=== PATIENT | male | born 1990 | race Caucasian/White ===

== ENCOUNTER 2020-06-24 14:09 | Outpatient (REF) | payer BC, SELFPAY | END 2020-06-24 14:10 | disposition home or self-care (01) | LOC: HO.HMGCLDS 14:09 | PROVIDERS: PCP Nurse Practitioner Family; Visit Provider Internal Medicine | DX: Z20.828 Contact with and (suspected) exposure to other viral communicable diseases (principal) | CPT/HCPCS: 87635 ==

== ENCOUNTER 2024-08-12 20:51 | Inpatient (IN) | payer MEDICAID, SELFPAY ==
--- NOTE | ~2024-08-12 | US_ITS ---
EXAMINATION: US TRIPLEX UPPER EXTREMITY, RIGHT CLINICAL INFORMATION: Right arm swelling following IV placement. COMPARISON: None available. TECHNIQUE: Color-flow triplex imaging with spectral analysis and compression Doppler was performed on the right upper extremity. FINDINGS: Heterogeneous echogenicity and noncompressibility of the cephalic vein in the antecubital fossa and distally into the right forearm, consistent with a superficial thrombus. The right internal jugular, subclavian, and axillary veins are patent and free of thrombus. The imaged segment of the right brachiocephalic vein is patent. Spectral doppler waveforms are normal. The brachial and basilic veins are patent and compressible. US/US venous duplex UE RT IMPRESSION: 1. Superficial thrombus within the right cephalic vein in the antecubital fossa and distally into the right forearm. 2. No evidence of deep venous thrombosis involving the right upper extremity. Electronically signed by: Ananth Wagner MD 08/15/2024 11:56 AM [facility]
[2024-08-12 20:52] VITALS: BP 147/81; PULSE 115; RESP 20; TEMP 37.4; O2SAT 98; BMI 25.5
[2024-08-12 21:24] LABS: MANUAL DIFF FLAG NO
[2024-08-12 21:28] LABS: Basophils Absolute Auto 0.1 X10*3/uL (0.0-0.2); Basophils Percent Auto 0.6 % (0-2); Eosinophils Percent Auto 0.3 % (0-4); Hematocrit 43.2 % (42.0-52.0); Hemoglobin 15.5 g/dl (14.0-18.0); Imm Gran Abs Auto 0.02 X10*3/uL (0.00-0.03); Imm Gran Pct Auto 0.2 % (0.0-0.4); Lymphocytes Absolute Auto 2.2 X10*3/uL (1.2-4.9); Lymphocytes Percent Auto 18.1 % (20-40); Mean Corpuscular HGB Conc 35.9 g/dl (31.0-36.0); Mean Corpuscular Hemoglobin 33.5 pg (27.0-33.0); Mean Corpuscular Volume 93.5 fL (80.0-98.0); Mean Platelet Volume 8.3 fL (9.4-12.4); Monocytes Absolute Auto 0.7 X10*3/uL (0.1-1.2); Monocytes Percent Auto 5.6 % (2-11); Neutrophils Absolute Auto 9.2 x10*3/uL (2.0-8.3); Neutrophils Percent Auto 75.2 % (45-73); Platelet Count 300 X10*3/uL (160-400); Red Blood Count 4.62 X10*6/uL (4.60-5.80); Red Cell Distribution Width 12.3 % (11.0-16.0); White Blood Count 12.2 X10*3/uL (4.8-10.8)
[2024-08-12 21:42] LABS: Albumin Level 4.5 g/dL (3.5-5.0); Alkaline Phosphatase 51 U/L (39-117); Anion Gap 13 (12-20); Aspartate Amino Transferase 29 U/L (5-37); Bilirubin Total 0.4 mg/dL (0.0-1.0); Blood Urea Nitrogen 7 mg/dL (9-16); C Reactive Protein 0.44 mg/dL (< or = 0.50); Calcium 9.3 mg/dL (8.4-10.2); Carbon Dioxide 24 mmol/L (22-29); Chloride 103 mmol/L (96-108); Estimated Glomerular Filt Rate > 60; Glucose Random 95 mg/dL (60-115); Lactic Acid 2.3 mmol/L (0.5-2.0); Lipase 39 U/L (8-78); Potassium 3.2 mmol/L (3.3-5.1); Sodium 137 mmol/L (135-145); Total Protein 7.4 g/dL (6.5-8.0)
[2024-08-12 21:54] LABS: Alanine Aminotransferase 30 U/L (0-40)
[2024-08-12] MEDS: 0.9 % Sodium Chloride 1,000 ML 999 ML IV (22:08)
[2024-08-12] MEDS: Acetaminophen 325 MG TABLET 650 MG PO (22:09)
[2024-08-12] MEDS: cefEPime HCl/D5W 2 GM/50 ML PIGGYBACK IV (22:09)
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
[2024-08-12] MEDS: vancomycin/NS 2,000 MG/500 ML PLAST..BAG 250 MG IV (22:28)
[2024-08-12] MEDS: Potassium Chloride ER 20 MEQ TAB.ER.PRT 40 MEQ PO (22:28)
[2024-08-12] MEDS: Diphth,Pertus(ACell),Tet Adult 0.5 ML SYRINGE IM (22:29)
[2024-08-12 22:30] LABS: Appearance Urine Clear; Color Urine Yellow; Glucose Urine UA Negative (Negative); Leukocyte Esterase Urine Negative (Negative); Nitrite Urine Negative (Negative); PH 5.5 (5.0-9.0); Urine Blood Negative (Negative); Urine Ketones Negative (Negative); Urine Protein Negative (Neg-Trace)
[2024-08-12 22:36] LABS: Erythrocyte Sedimentation Rate 2 MM/HR (0-15)
[2024-08-12 22:46] VITALS: BP 146/96; PULSE 79; RESP 18; TEMP 36.8; O2SAT 97
[2024-08-12 23:21] LABS: Reflex Lactate? Lactic Acid Added
[2024-08-12 23:22] VITALS: BP 126/68; PULSE 74; RESP 12; O2SAT 98
[2024-08-12 23:35] VITALS: BP 127/70; PULSE 80; RESP 12; TEMP 36.9; O2SAT 98
[2024-08-12 23:56] LABS: ~Lactic Acid-LAB USE ONLY 1.8 mmol/L (0.5-2.0)
--- NOTE | 2024-08-12 23:59 | MHC.EDTECH ---
This tech took over care of patient at 2300,rounded and introduced self to pt,RN at bedside and took vitals,pt appears comfortable,call salazar in reach
[2024-08-13 00:58] VITALS: BP 114/80; PULSE 72; RESP 16; TEMP 36.7; O2SAT 97
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
[2024-08-13 01:52] LABS: Magnesium 2.3 mg/dL (1.6-2.6)
[2024-08-13 04:26] VITALS: BP 124/92; PULSE 71; RESP 16; TEMP 36.6; O2SAT 98
[2024-08-13 04:38] LABS: Basophils Absolute Auto 0.1 X10*3/uL (0.0-0.2); Basophils Percent Auto 0.8 % (0-2); Eosinophils Absolute Auto 0.1 X10*3/uL (0.0-0.4); Eosinophils Percent Auto 1.5 % (0-4); Hematocrit 40.7 % (42.0-52.0); Imm Gran Abs Auto 0.02 X10*3/uL (0.00-0.03); Imm Gran Pct Auto 0.2 % (0.0-0.4); Lymphocytes Absolute Auto 2.1 X10*3/uL (1.2-4.9); MANUAL DIFF FLAG NO; Mean Corpuscular HGB Conc 34.4 g/dl (31.0-36.0); Mean Corpuscular Hemoglobin 33.3 pg (27.0-33.0); Mean Corpuscular Volume 96.9 fL (80.0-98.0); Mean Platelet Volume 8.7 fL (9.4-12.4); Monocytes Absolute Auto 0.7 X10*3/uL (0.1-1.2); Monocytes Percent Auto 7.6 % (2-11); Neutrophils Percent Auto 66.9 % (45-73); Platelet Count 262 X10*3/uL (160-400); Red Cell Distribution Width 12.3 % (11.0-16.0); White Blood Count 8.9 X10*3/uL (4.8-10.8)
[2024-08-13 04:53] LABS: Anion Gap 15 (12-20); Blood Urea Nitrogen 8 mg/dL (9-16); Calcium 8.7 mg/dL (8.4-10.2); Carbon Dioxide 22 mmol/L (22-29); Chloride 105 mmol/L (96-108); Creatinine Clr Calc Pharmacy 152.5; Estimated Glomerular Filt Rate > 60; Glucose Random 85 mg/dL (60-115); Potassium 3.8 mmol/L (3.3-5.1); Sodium 138 mmol/L (135-145)
--- NOTE | 2024-08-13 06:06 | PHA.PROG ---
Admission Date/Time: August 13, 2024 00:48 Indication: Skin Weight in k.2 kg Adjusted body weight in Kg: Byars body weight in Kg: Obesity Dosing Indication % IBW: Serum Creatinine - Last 168 Hours 08/12/24 08/13/24 21:16 04:24 Creatinine 0.87 0.77 Estimated CrCl and GFR - Last 168 Hours 08/12/24 08/13/24 21:16 04:24 Estim Creat Clear Calc 135.0 152.5 Estimated GFR > 60 > 60 Vancomycin Loading Dose: 2000mg Current Vancomycin Dosing Regimen: 1250mg Q12H Vancomycin Monitoring using AUC goal of 400 - 600 range with trough as surrogate marker: 458 mg/L Date and Time for next Vancomycin Level to be drawn: 08/14 @0900 Pharmacist Comments on Vancomycin Plan: Projected trough of 13.4 mg/L, will get level before 4th dose tomorrow. Vancomycin dosing will take advantage of [employer] as a clinical decision support tool that uses Bayesian modeling to calculate individual patient's pharmacokinetic parameters and forecast the patient's drug concentration time course with the target goal AUC 24 range of 400 - 600 mg/L/hr.
--- NOTE | 2024-08-13 07:31 | PC.NURSE ---
Care of Pt assumed at change of shift. Pt is currently resting comfortably with eyes closed. Pt has inpatient room assignment at this time--will prepare for transport.
[2024-08-13] MEDS: 0.9 % Sodium Chloride Flush 3 ML SYRINGE IVFLUSH ×3 (07:34→22:20)
[2024-08-13 07:37] VITALS: BP 134/93; PULSE 78; RESP 16; TEMP 36.8; O2SAT 95
--- NOTE | 2024-08-13 08:09 | P.PNIM_ITS ---
Subjective Subjective Date of Service: 08/13/24 Interval History: some improvement in erythema Physical Exam 2 Vital Signs: Vital Signs: Last Vital Signs Temp 98.3 F 08/13/24 07:37 Pulse 78 08/13/24 07:37 Resp 16 08/13/24 07:37 BP 134/93 H 08/13/24 07:37 Pulse Ox 95 08/13/24 07:37 O2 Del Method Room Air 08/13/24 07:37 BMI result Body Mass Index 25.5 Objective Data Active Medications Acetaminophen (Acetaminophen 325 Mg Tablet) 650 mg PO Q6H PRN PRN Reason: Pain, Mild (Pain Scale 1-3), fever or headache Calcium Carbonate (Calcium Carbonate 750 Mg Tab.Chew) 750 mg PO Q4H PRN PRN Reason: Heartburn Cefepime HCl (Maxipime) 2 gm in 50 mls @ 100 mls/hr IV Q12H [facility] Vancomycin HCl 1,250 mg/ (Sodium Chloride) 250 mls @ 166.667 mls/hr IV Q12H [facility] Magnesium Hydroxide (Milk Of Magnesia 30 Ml Oral.Susp) 30 ml PO DAILY PRN PRN Reason: Constipation Melatonin (Melatonin 3 Mg Tablet) 6 mg PO BEDTIME PRN PRN Reason: Insomnia Morphine Sulfate (Morphine Sulfate 2 Mg/Ml Cartridge) 2 mg IVPUSH Q4H PRN; Protocol PRN Reason: Pain, Severe (Pain Scale 7-10) Ondansetron HCl (Ondansetron Hcl 4 Mg/2 Ml Vial) 4 mg IVPUSH Q8H PRN PRN Reason: Nausea and Vomiting Oxycodone HCl (Oxycodone Hcl Immed Release 5 Mg Tablet) 5 mg PO Q6H PRN PRN Reason: Pain, Moderate(Pain Scale 4-6) Pharmacy Consult (Consult Rx Vancomycin Dosing) 1 each MISCELLANE DAILY PRN PRN Reason: Consult order Rivaroxaban (Rivaroxaban 20 Mg Tablet) 20 mg PO DAILY@1700 [facility] Sodium Chloride (0.9 % Sodium Chloride Flush 3 Ml Syringe) 3 ml IVFLUSH QSHIFT [facility] Last Admin: 08/13/24 07:34 Dose: 3 ml Documented By: MARTHA Labs 08/13/24 04:24 08/13/24 04:24 Labs: Laboratory Results - last 24 hr 08/12/24 08/12/24 08/12/24 21:16 22:14 23:30 MCV 93.5 MCH 33.5 H MCHC 35.9 RDW 12.3 Plt Count 300 MPV 8.3 L Immature Gran % (Auto) 0.2 Neut % (Auto) 75.2 H Lymph % (Auto) 18.1 L [place] % (Auto) 5.6 Eos % (Auto) 0.3 Baso % (Auto) 0.6 Lymph # (Auto) 2.2 [place] # (Auto) 0.7 Eos # (Auto) 0.0 Baso # (Auto) 0.1 Abs Immat Gran (auto) 0.02 Absolute Neuts (auto) 9.2 H Absolute Nucleated RBC 0.000 Nucleated RBC % (auto) 0.0 ESR 2 Anion Gap 13 Estim Creat Clear Calc 135.0 Estimated GFR > 60 Random Glucose 95 Lactic Acid 2.3 H* Lactic Acid F/U @ 2Hr 1.8 Calcium 9.3 Magnesium 2.3 Total Bilirubin 0.4 AST 29 ALT 30 Alkaline Phosphatase 51 C-Reactive Protein 0.44 Total Protein 7.4 Albumin 4.5 Lipase 39 Urine Color Yellow Urine Appearance Clear Urine pH 5.5 Ur Specific [place] 1.010 Urine Protein Negative Urine Glucose (UA) Negative Urine Ketones Negative Urine Blood Negative Urine Nitrite Negative Ur Leukocyte Esterase Negative 08/13/24 04:24 MCV 96.9 MCH 33.3 H MCHC 34.4 RDW 12.3 Plt Count 262 MPV 8.7 L Immature Gran % (Auto) 0.2 Neut % (Auto) 66.9 Lymph % (Auto) 23.0 [place] % (Auto) 7.6 Eos % (Auto) 1.5 Baso % (Auto) 0.8 Lymph # (Auto) 2.1 [place] # (Auto) 0.7 Eos # (Auto) 0.1 Baso # (Auto) 0.1 Abs Immat Gran (auto) 0.02 Absolute Neuts (auto) 6.0 Absolute Nucleated RBC 0.000 Nucleated RBC % (auto) 0.0 ESR Anion Gap 15 Estim Creat Clear Calc 152.5 Estimated GFR > 60 Random Glucose 85 Lactic Acid Lactic Acid F/U @ 2Hr Calcium 8.7 D Magnesium Total Bilirubin AST ALT Alkaline Phosphatase C-Reactive Protein Total Protein Albumin Lipase Urine Color Urine Appearance Urine pH Ur Specific [place] Urine Protein Urine Glucose (UA) Urine Ketones Urine Blood Urine Nitrite Ur Leukocyte Esterase Assessment and Plan (1) Cellulitis: Status: Acute Plan 33M PMH factor V leiden, history of pe on xarelto, presented with left hand pain and erythema s/p burn sepsis due to left hand cellulitis s/p burn continue iv vanc and cefepime follow up cultures no obvious fluid collection, good sensation and ROM hypokalemia replaced history of pe with factor v leiden xarelto full code reason for continued hospitalization:iv abx for cellulitis in high risk area Quality Stroke Does the patient have a stroke diagnosis?: No VTE Prior VTE?: Yes VTE Risk Level:: Medical - moderate - high VTE Device Contraindication: Treatment Not Indicated VTE Drug Contraindication: N/A - Med Ordered
[2024-08-13 08:43] VITALS: BP 139/87; PULSE 54; RESP 18; TEMP 36.5; O2SAT 98
[2024-08-13 08:44] VITALS: BMI 26.1
--- NOTE | 2024-08-13 09:09 | PHA.MEDREC ---
Pharmacy Consult ? Medication Reconciliation Pharmacy has completed the medication reconciliation.Confirmed with pt he is only on Xarelto at home with claim history and he states not taking any otc medications.
[2024-08-13] MEDS: cefEPime HCl/D5W 2 GM/50 ML PIGGYBACK IV ×2 (09:52→21:42)
[2024-08-13] MEDS: vancomycin HCL 1,250 MG in 0.9 % Sodium Chloride 250 ML 166.67 MG IV ×2 (10:36→22:19)
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
--- NOTE | 2024-08-13 13:08 | MHC.CM.PN ---
pt is independent will not need services when dcd has own ride home
[2024-08-13 15:48] VITALS: BP 140/75; PULSE 50; RESP 18; TEMP 36.6; O2SAT 99
[2024-08-13] MEDS: Rivaroxaban 20 MG TABLET PO (16:48)
[2024-08-13 20:00] VITALS: BP 140/81; PULSE 57; RESP 18; TEMP 36.7; O2SAT 97
[2024-08-14 04:00] VITALS: BP 134/87; PULSE 56; RESP 16; TEMP 36.1; O2SAT 94
[2024-08-14 07:52] VITALS: BP 136/88; PULSE 64; RESP 16; TEMP 36.2; O2SAT 99
[2024-08-14 08:01] LABS: MANUAL DIFF FLAG NO
[2024-08-14 08:05] LABS: Basophils Absolute Auto 0.1 X10*3/uL (0.0-0.2); Basophils Percent Auto 0.7 % (0-2); Eosinophils Absolute Auto 0.1 X10*3/uL (0.0-0.4); Eosinophils Percent Auto 1.3 % (0-4); Hematocrit 46.3 % (42.0-52.0); Hemoglobin 16.2 g/dl (14.0-18.0); Imm Gran Abs Auto 0.04 X10*3/uL (0.00-0.03); Imm Gran Pct Auto 0.5 % (0.0-0.4); Lymphocytes Absolute Auto 1.3 X10*3/uL (1.2-4.9); Lymphocytes Percent Auto 16.3 % (20-40); Mean Corpuscular Hemoglobin 33.3 pg (27.0-33.0); Mean Corpuscular Volume 95.3 fL (80.0-98.0); Mean Platelet Volume 8.8 fL (9.4-12.4); Monocytes Absolute Auto 0.6 X10*3/uL (0.1-1.2); Monocytes Percent Auto 7.7 % (2-11); Neutrophils Absolute Auto 5.7 x10*3/uL (2.0-8.3); Neutrophils Percent Auto 73.5 % (45-73); Platelet Count 281 X10*3/uL (160-400); Red Blood Count 4.86 X10*6/uL (4.60-5.80); Red Cell Distribution Width 12.1 % (11.0-16.0); White Blood Count 7.7 X10*3/uL (4.8-10.8)
[2024-08-14 08:22] LABS: Anion Gap 15 (12-20); Blood Urea Nitrogen 13 mg/dL (9-16); Calcium 9.3 mg/dL (8.4-10.2); Carbon Dioxide 21 mmol/L (22-29); Chloride 108 mmol/L (96-108); Creatinine Clr Calc Pharmacy 154.5; Estimated Glomerular Filt Rate > 60; Glucose Random 96 mg/dL (60-115); Sodium 140 mmol/L (135-145)
[2024-08-14] MEDS: 0.9 % Sodium Chloride Flush 3 ML SYRINGE IVFLUSH ×2 (08:35→15:11)
[2024-08-14] MEDS: cefEPime HCl/D5W 2 GM/50 ML PIGGYBACK IV ×2 (09:37→21:23)
[2024-08-14 09:59] LABS: Vancomycin Random 6.4 mcg/mL (15-20)
--- NOTE | 2024-08-14 10:10 | HE.PHANOTE ---
Addendum entered by Taye Mcintosh [facility] 08/14/24 10:12: PREDICTED TROUGH 11.9, PREDICTED AUC 11.9. Original Note: Re: Vanco Good renal function, with improvement. Trough returned at 6.4, pt is sub therapeutic. Dose was increased to 1250mg q8h. Next trough 08/15 @ 0900.
[2024-08-14] MEDS: vancomycin HCL 1,250 MG in 0.9 % Sodium Chloride 250 ML 166.67 MG IV ×2 (10:45→18:23)
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
[2024-08-14] MEDS: oxyCODONE HCl Immed Release 5 MG TABLET PO (15:11)
[2024-08-14 15:14] VITALS: BP 132/73; PULSE 56; RESP 20; TEMP 36.6; O2SAT 97
[2024-08-14] MEDS: Rivaroxaban 20 MG TABLET PO (17:06)
--- NOTE | 2024-08-14 18:04 | PC.NURSE ---
pt dsg changed, pt tolerated well
[2024-08-14 20:00] VITALS: BP 118/77; PULSE 53; RESP 16; TEMP 36.6; O2SAT 96
[2024-08-15] MEDS: vancomycin HCL 1,250 MG in 0.9 % Sodium Chloride 250 ML 166.67 MG IV (02:44)
[2024-08-15 03:16] VITALS: BP 128/80; PULSE 58; RESP 16; TEMP 36.5; O2SAT 98
[2024-08-15 05:51] LABS: MANUAL DIFF FLAG NO
[2024-08-15 06:01] LABS: Basophils Absolute Auto 0.1 X10*3/uL (0.0-0.2); Basophils Percent Auto 0.5 % (0-2); Eosinophils Absolute Auto 0.1 X10*3/uL (0.0-0.4); Eosinophils Percent Auto 1.2 % (0-4); Hematocrit 45.4 % (42.0-52.0); Imm Gran Abs Auto 0.02 X10*3/uL (0.00-0.03); Imm Gran Pct Auto 0.2 % (0.0-0.4); Lymphocytes Absolute Auto 1.6 X10*3/uL (1.2-4.9); Lymphocytes Percent Auto 16.2 % (20-40); Mean Corpuscular HGB Conc 35.2 g/dl (31.0-36.0); Mean Corpuscular Hemoglobin 33.6 pg (27.0-33.0); Mean Corpuscular Volume 95.4 fL (80.0-98.0); Mean Platelet Volume 8.9 fL (9.4-12.4); Monocytes Absolute Auto 0.7 X10*3/uL (0.1-1.2); Monocytes Percent Auto 6.7 % (2-11); Neutrophils Absolute Auto 7.4 x10*3/uL (2.0-8.3); Neutrophils Percent Auto 75.2 % (45-73); Platelet Count 300 X10*3/uL (160-400); Red Blood Count 4.76 X10*6/uL (4.60-5.80); Red Cell Distribution Width 12.2 % (11.0-16.0); White Blood Count 9.9 X10*3/uL (4.8-10.8)
[2024-08-15 06:14] LABS: Anion Gap 14 (12-20); Blood Urea Nitrogen 12 mg/dL (9-16); Carbon Dioxide 21 mmol/L (22-29); Chloride 109 mmol/L (96-108); Creatinine Clr Calc Pharmacy 148.7; Estimated Glomerular Filt Rate > 60; Glucose Random 96 mg/dL (60-115); Potassium 3.6 mmol/L (3.3-5.1); Sodium 140 mmol/L (135-145)
[2024-08-15 07:10] VITALS: BP 113/71; PULSE 51; RESP 16; TEMP 36.6; O2SAT 97
[2024-08-15] MEDS: 0.9 % Sodium Chloride Flush 3 ML SYRINGE IVFLUSH ×2 (08:34)
[2024-08-15 09:44] LABS: Vancomycin Random 12.9 mcg/mL (15-20)
--- NOTE | 2024-08-15 09:56 | HE.PHANOTE ---
Re: Vanco Pt has good renal function. Trough returned at 12.9. Pt is therapeutic. Continue dose of 1250mg q8h, with predict AUC 470, predicted trough 11.8. Next trough 08/16 @ 0900.
[2024-08-15] MEDS: oxyCODONE HCl Immed Release 5 MG TABLET PO (10:07)
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
[2024-08-15] MEDS: Acetaminophen 325 MG TABLET 650 MG PO (12:12)
[2024-08-15] MEDS: Doxycycline Monohydrate 100 MG CAPSULE PO (12:12)
[2024-08-15] MEDS: cephALEXin 500 MG CAPSULE PO (12:12)
--- NOTE | 2024-08-15 13:11 | MHC.CM.PN ---
Pt has been medically cleared for DC, he will arrange a ride home, plan is; home, self care.
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
== END 2024-08-15 14:00 | disposition home or self-care (01) | DRG 720 ==
LOC: HO.ED 22:41 → HO.EDOVER 08-13 01:13 → HO.S3 08-13 07:23
PROVIDERS: Admitting Provider Physician Assistant; Emergency Provider Emergency Medicine; Visit Provider Student in an Organized Health Care Education/Training Program
DX: A41.9 Sepsis, unspecified organism (principal); I82.611 Acute embolism and thrombosis of superficial veins of right upper extremity; D68.51 Activated protein C resistance; X15.0XXS Contact with hot stove (kitchen), sequela; E87.6 Hypokalemia; Z79.01 Long term (current) use of anticoagulants; Z86.711 Personal history of pulmonary embolism
CPT/HCPCS: 36415; 80048; 80053; 80202; 81003; 83605; 83690; 83735; 85025; 85652; 86140; 87040; 90715; 93971; 99285; J0692; J3370; J3371

== ENCOUNTER → 2024-08-13 00:48 | Outpatient (BNV) | payer MEDICAID, SELFPAY | PROVIDERS: Admitting Provider Physician Assistant; Emergency Provider Emergency Medicine; Visit Provider Physician Assistant | DX: A41.9 Sepsis, unspecified organism (principal); L03.114 Cellulitis of left upper limb; T23.002A Burn of unspecified degree of left hand, unspecified site, initial encounter; E87.6 Hypokalemia; I82.611 Acute embolism and thrombosis of superficial veins of right upper extremity | CPT/HCPCS: 99223; 99232; 99239; 99499 ==

== ENCOUNTER 2025-02-27 15:42 | Outpatient (REF) | payer MEDICAID, SELFPAY ==
--- NOTE | ~2025-02-27 | XR_ITS ---
EXAMINATION: XR CHEST CLINICAL INFORMATION: worsening SOB COMPARISON: None available. TECHNIQUE: 2 views of the chest were obtained. FINDINGS: No significant abnormality is noted involving the heart, lungs, mediastinum, bony thorax or soft tissues. XR/XR chest 2V IMPRESSION: No acute disease Electronically signed by: Kiran Olsen MD 02/27/2025 04:11 PM EDT
--- OUTSIDE RECORDS SUMMARY | 2025-02-27 18:06 | XMS_ITS | Encounter Summary ---
Author Organization [employer] Address [address] [place] [address] [address] [place] [address] Care Team Providers Care Backrest Assembler Name Role Phone Unavailable Primary Care Provider Unavailabl e Reason for Referral * PFT (Routine) - Authorized Specialty Diagnoses / Procedures Referred By Bryce gautam Referred To Contact Diagnoses Shortness of breath Procedures Pulmonary function test Mary Stevens DO [address] [place] [address] Phone: tel: fax: [address] Phone: tel: fax: Referral ID Status Reason Start Date Expiration Date V isits Requested Visits Authorized [id number] Authorized 02/27/2025 02/27/2026 1 1 * Imaging (Urgent) - Authorized Specialty Diagnoses / Procedures Referred By Bryce gautam Referred To Contact Cardiology Diagnoses Shortness of breath Procedures Transthoracic Echo (TTE) Complete Mary Stevens DO [address] [place] [address] Phone: tel: fax: [address] Phone: tel: fax: Referral ID Status Reason Start Date Expiration Date Visits Requested Visits Authorized [id number] Authorized Perform Procedure 02/27/2025 02/27/2026 1 1 Encounter Details Date Type Department Care Team (Late st Contact Info) Description 02/27/2025 3:20 PM EDT Office Visit [facility] [address] [place] [address] Mary Stevens DO [address] [place] [address] Shortness of breath (Primary Dx) Social History Tobacco Use Types Packs/Day Years Used Date Smoking Tobacco: Never Smokeless Tobacco: Never Sex and Gender Information Value Date Recorded Sex Assigned at Male 07/18/2022 10:39 AM EDT Legal Sex Male 10:39 AM EDT Gender Identity Male 07/18/2022 10:39 AM EDT Sexual Orientation Straight 07/18/2022 10 :39 AM EDT documented as of this encounter Last Filed Vital Signs Vital Sign Reading Time Taken Comments Blood Pressure 126/91 02/27/2025 3:24 PM EDT Pulse 100 02/27/2025 3:40 PM EDT Temperature 36.4 ??C (97.5 ??F) 02/27/2025 3:24 PM ED T Respiratory Rate 20 02/27/2025 3:24 PM EDT Oxygen Saturation 95% 02/27/2025 3:40 PM EDT Inhaled Oxygen Concentration - - Weight - - Height - - Body Mass Index - - documented in this encounter Progress Notes * Mary Stevens DO - 02/27/2025 3:20 PM EDT SUBJECTIVE Romulo Cuellar is a 34 y.o. male who presents for Sick Visit. He presents to [place] today c/o SOB. He says that his sx started about 3 weeks ago. He says that he usually works out 1-2 times a day and he started noticing himself not being able to slow down breathing or catch his breath while working out. He says that he started hearing a wheezing sound deep in his chest when he breathes. He feels like he can't get his breathing to calm down. He denies any nasal congestion or rhinorrhea. He denies any ear pain, throat pain or postnasal drip. He's had a couple of episodes of non-productive coughing. He has no h/o asthma or seasonal allergies. He says that his mom has bad asthma and his GM and older sister also suffer from asthma. He says he has never smoked cigarettes. He says that he is a light THC user but recently stopped smoking weed because it made his breathing sx worse. He says his HR is usually in the 50s but has been high, > 100 recently. He says that the other night his HR was 138 and his mom, who is a RN at [employer], told him that he needed to go get checked.He woke up today feeling SOB after a nap and decided to come get checked. He has h/o Factor V and has had 6 DVTs and 2 pulmonary emboli. He is on xarelto for anticoagulationand reports compliance with medication daily. He denies any recent travel. History provided by: Patient foreign exchange services manager used: No Shortness of Breath Severity: Moderate Duration: 3 weeks Timing: Intermittent Progression: Worsening Chronicity: New Context: activity, smoke exposure and weather changes Context: not known allergens and not URI Relieved by: Rest Associated symptoms: cough and wheezing Associated symptoms: no abdominal pain, no chest pain, no diaphoresis, no ear pain, no fever, no headaches, no hemoptysis, no PND, no rash, no sore throat, no sputum production, no swollen glands andno vomiting Risk factors: hx of PE/DVT Risk factors: no recent alcohol use, no obesity, no prolonged immobilization, no recent surgery andno tobacco use Review of Systems Constitutional: Negative for activity change, appetite change, diaphoresis, fever and unexpected weight change. HENT: Negative for ear pain and sore throat. Respiratory: Positive for cough, shortness of breath and wheezing. Negative for hemoptysis, sputum production and chest tightness. Cardiovascular: Negative for chest pain, palpitations and PND. Gastrointestinal: Negative for abdominal pain, diarrhea, nausea and vomiting. Skin: Negative for rash. Neurological: Negative for dizziness, weakness and headaches. Hematological: Bruises/bleeds easily. Psychiatric/Behavioral: The patient is nervous/anxious. Patient Active Problem List Diagnosis Factor V Leiden (CMS/HCC) History of DVT of lower extremity Allergies Allergen Reactions Amoxicillin Other Reaction(s): dyspnea OBJECTIVE Visit Vitals BP (!) 126/91 (BP Location: Left arm, Patient Position: Sitting, BP Cuff Size: Large adult) Pulse 100 Temp 97.5 ??F (36.4 ??C) (Oral) Resp 20 SpO2 95% Smoking Status Never Physical Exam Constitutional: General: He is not in acute distress. Appearance: Normal appearance. Cardiovascular: Rate and Rhythm: Normal rate and regular rhythm. Heart sounds: Normal heart sounds. No murmur heard. Pulmonary: Effort: Pulmonary effort is normal. No accessory muscle usage or respiratory distress. Breath sounds: Normal breath sounds. No decreased air movement. No decreased breath sounds, wheezing or rhonchi. Comments: Speaking in full sentences without difficulty Neurological: General: No focal deficit present. Mental Status: He is alert and oriented to person, place, and time. Cranial Nerves: No cranial nerve deficit. Motor: No weakness. Gait: Gait normal. Psychiatric: Mood and Affect: Mood normal. Assessment/Plan Diagnoses and all orders for this visit: Shortness of breath With worsening sx over the last 3 weeks, with mild tachycardia and mildly reduced SpO2 on exam, currently in no acute distress -advised pt given his medical history, recommend further eval in ED to r/o PE, he agrees with recommendation; he declines EMS transport and agrees to have Mom bring him to [facility] ED -notified [facility] triage of pt's arrival -referred for CXR for eval -advised trial albuterol prn -referred for ECHO and PFTs -consider eval with pulm vs cards pending results -advised rtc or go to ED if acute worsening of sx, he agrees with plans --Follow-up with PCP as scheduled or sooner prn-- Current Outpatient Medications: albuterol 108 (90 Base) MCG/ACT inhaler, Inhale 2 puffs every 4 (four) hours if needed for shortness of breath or wheezing., Disp: 18 g, Rfl: 1 Xarelto 20 MG tablet, TAKE 1 TABLET BY MOUTH EVERY EVENING WITH A MEAL, Disp: 90 tablet, Rfl: 1 Scribe Attestation: Bran David, am serving as a scribe to document services personally performed by Mary Oneil, based on the patient's response to questions by provider and provider's statements to me. 02/27/25 5:26 PM Physicians Attestation: Mary David DO, have reviewed the information by the scribe, Bran Kong, for accuracy and agree with its content. documented in this encounter Plan of Treatment Scheduled Orders Name Type Priority Associated Diagnoses Order Schedule Transthoracic Echo (TTE) Complete Echocardiography Urgent Shortness of breath Expected: 02/27/2025 (Approximate), Expires: 02/27/2027 Pulmonary function test PFT Routine Shortness of breath Expected: 02/27/2025 (Approximate), Expires: 02/27/2026 documented as of this encounter Procedures Procedure Name Priority Date/Time Associated Diagnosis Comments XR CHEST 2 VIEWS STAT 02/27/2025 3:03 PM EDT Shortness of breath documented in this encounter Results * XR Chest 2 Views (02/27/2025 3:03 PM EDT) Anatomical Region Laterality Modality Chest Radiographic Shea ging 02/27/2025 3:03 PM EDT Narrative 02/27/2025 4:13 PM EDT ?[facility] ?[address] ?[place] [address] ?XRay Report ? Signed ? Patient: Romulo Cuellar ?MR#: [id number] ?? 10 ? : 1990 ?Acct:[id number] ? Age/Sex: 34 / M ?ADM Date: 02/27/25 ? Loc: HO.HHCX ? Attending Dr: Mary Stevens DO ? Ordering Physician: Mary Stevens DO ?? Date of Service: 02/27/25 ?? Procedure(s): XR chest 2V ?? Accession Number(s): [id number] ? cc: Jurcsak,Mary A DO ? EXAMINATION: ?? XR CHEST ? CLINICAL INFORMATION: ?? worsening SOB ? COMPARISON: ?? None available. ? TECHNIQUE: ?? 2 views of the chest were obtained. ? FINDINGS: ?? No significant abnormality is noted involving the heart, lungs, ?? mediastinum, bony thorax or soft tissues. ? XR/XR chest 2V ?? IMPRESSION: ?? No acute disease ? Electronically signed by: ??Kiran Olsen MD ??02/27/2025 04:11 PM EDT ?? RP ? Dictated By: ?Kiran Olsen MD ? Signed By: ?<Electronically signed by Kiran Olsen MD in OV> ?02/27/25 1611 ? DD/ 1503 ? TD/TT: 02/27/25 1500 ? Head Concierge: ? Procedure Note Joselito Lee - 02/27/2025 [facility] [address] [place] [address] XRay Report Signed Patient: Romulo Cuellar LMR#: [id number] 10 : 1990Acct:[id number] Age/Sex: 34 / MADM Date: 02/27/25 Loc: HO.HHCX Attending Dr: Mary Stevens DO Ordering Physician: Mary Stevens DO Date of Service: 02/27/25 Procedure(s): XR chest 2V Accession Number(s): [id number] cc: Mary Stevens DO EXAMINATION: XR CHEST CLINICAL INFORMATION: worsening SOB COMPARISON: None available. TECHNIQUE: 2 views of the chest were obtained. FINDINGS: No significant abnormality is noted involving the heart, lungs, mediastinum, bony thorax or soft tissues. XR/XR chest 2V IMPRESSION: No acute disease Electronically signed by: Kiran Olsen MD 02/27/2025 04:11 PM EDT Dictated By: Kiran Olsen MD Signed By: <Electronically signed by Kiran Olsen MD in OV> 02/27/25 1611 DD/ 1503 TD/TT: 02/27/25 1500 Head Concierge: Mary Stevens DO IMG XR PROCEDURES Final Resu lt documented in this encounter Visit Diagnoses Diagnosis Shortness of breath- Primary documented in this encounter
== END 2025-02-27 15:43 | disposition home or self-care (01) ==
LOC: HO.HHCX 15:42
PROVIDERS: Visit Provider Family Medicine
DX: R06.02 Shortness of breath (principal)
CPT/HCPCS: 71046

== ENCOUNTER → 2025-02-27 15:42 | Outpatient (BNV) | payer MEDICAID, SELFPAY | PROVIDERS: Visit Provider Radiology Diagnostic Radiology | DX: R06.02 Shortness of breath (principal) | CPT/HCPCS: 71046 ==

== ENCOUNTER → 2025-02-28 13:45 | Outpatient (REF) | payer MEDICAID, SELFPAY ==
--- NOTE | 2025-02-28 | ECG_ITS ---
Test Reason : SOB Blood Pressure : */* mmHG Vent. Rate : 69 BPM Atrial Rate : 69 BPM P-R Int : 170 ms QRS Dur : 98 ms QT Int : 402 ms P-R-T Axes : 29 69 50 degrees QTcB Int : 430 ms Normal sinus rhythm Normal ECG When compared with ECG of 05-Mar-2011 13:06, MANUAL COMPARISON REQUIRED PREVIOUS ECG IS INCOMPATIBLE Referred By: Mary Stevens Electronically Signed By: MONIK PARADA MD
--- OUTSIDE RECORDS SUMMARY | 2025-02-28 13:51 | XMS_ITS | Clinical Summary ---
Author Organization [facility] Address [address] [place] [phone] Phone Care Team Providers Care Audit Partner Name Role Phone Casandra Frances MD Primary Care Provider Unava ilable Immunizations Immunization Administration Dates Next Due DTP 02/16/1998, 4,06/25/1993,04/07,02/05/1993 HPV, Quadrivalent 04/30/2012 Hep B, ped/adol 06/25/1993,02/05/1993,1992 Hib (PRP-T) 08/09/1994, 3,04/07/1993,02/05 MMR 02/16/1998,08/09/1994 Meningococcal Conj (Menactra) MCV4P 04/03/2009 OPV 02/16/1998, 4,04/07/1993,02/05 Td (adult) (MBL), 2 Lf tetan us toxoid, PF, adsorbed 04/11/2005 Tdap 04/09/2010 Varicella 04/03/2009,01/31/2003 Family History Relation Name Status Comments Father Alive Father: Arthrit is - knees Mother Alive Mother: Asthma / GERD / Asthma / Migraines Other , Family histor y of Migraines, Family history of Diabetes mellitus Sister 1 Alive Sister: Alive a nd well, Alive and well, Alive and well Sister 2 Alive Sister: Alive a nd well, Alive and well, Alive and well Sister 3 Alive Sister: Alive a nd well, Alive and well, Alive and well Social History Tobacco Use Types Packs/Day Years Used Date Smoking Tobacco: Former Comments:Former smoker Sex and Gender Information Value Date Recorded Sex Assigned at Not on file Legal Sex Male 4:46 PM EDT Gender Identity Not on file Sexual Orientation Not on file Last Filed Vital Signs Vital Sign Reading Time Taken Comments Blood Pressure 118/78 03/11/2013 12:00 AM EDT Pulse - - Temperature 35.9 ??C (96.7 ??F) 03/11/2013 12:00 AM E DT Respiratory Rate - - Oxygen Saturation - - Inhaled Oxygen Concentration - - Weight 78.9 kg (174 lb) 03/11/2013 12:00 AM EDT Height 178.6 cm (5' 10.3 ) 04/30/2012 12:00 AM E DT Body Mass Index 24.75 04/30/2012 12:00 AM EDT Plan of Treatment Health Maintenance Due Date Last Done Comments HPV Vaccines (2 - Male 3-dose series) 05/28/2012 04/30/2012 DTaP,Tdap,and Td Vaccines (7 - Td or Tdap) 04/09/2020 04/09/2010, 04/11/2005, 02/16/1998, Additional history exists Influenza Vaccines (#1) 2024 COVID-19 Vaccine ( season) 2024 Hepatitis B Vaccines Completed 06/25/1993, 02/05/1993, 1992 HIB Vaccines Completed 08/09/1994, 04/1993, 04/07/1993, Additional history exists IPV Vaccines Completed 02/16/1998, 07/20, 04/07/1993, Additional history exists MMR Vaccines Completed 02/16/1998, 08/09/1994 Meningococcal Vaccine Completed 04/03/2009 Varicella Vaccines Completed 04/03/2009, 01/31/2003 Hepatitis A Vaccines Aged Out No long er eligible based on patient's age to complete this topic Men B Vaccine Aged Out No longer elig ible based on patient's age to complete this topic Pneumococcal Vaccine Aged Out No long er eligible based on patient's age to complete this topic Care Teams Audit Partner Relationship Specialty Start Date End Date Casandra Frances MD PCP - General 04/28/17
--- NOTE | 2025-02-28 14:03 | CA_ITS ---
Transthoracic Echocardiogram Patient (Last, First, Middle): Romulo Cuellar L Gender: Male Date of : 1990 Age: 34 Procedure Date: 02/28/2025 Procedure Type: Transthoracic Echocardiogram Location: OP Height: 182.88 cm Weight: 86.18 kg BSA: 2.08 m2 Heart Rate: 71 bpm BP: 110 / 70 mmHg Log Chipper: SHAWNA Iniguez MD: Mary Stevens DO Reroller Hand: Garrison Chun MD Symptoms: WAYNE Study Quality: Adequate ECG Rhythm: Sinus Conclusions: - Normal study Findings Left Ventricle Normal left ventricular size, thickness, and systolic function. The visually estimated ejection fraction is between 55-60%. Spectral Doppler is indicative of a normal filling pattern. Right Ventricle Normal right ventricular cavity size and systolic function. Atria Both atria are normal in size. There is no evidence of interatrial shunt. Aortic Valve Normal aortic valve structure and function. There is no aortic valve stenosis. There is no aortic valve regurgitation. Mitral Valve Normal mitral valve structure and function. There is trace mitral valve regurgitation. There is no mitral valve stenosis. Pulmonic Valve The pulmonic valve is normal. There is trace pulmonic valve regurgitation. Tricuspid Valve Normal tricuspid valve structure. There is trace tricuspid valve regurgitation. The right ventricular systolic pressure is normal. The right ventricular systolic pressure is 14 mmHg. Normal right atrial pressure. There is no evidence of pulmonary hypertension. Great Vessels All visible segments of the aorta are normal in size. The visualized portions of the pulmonary artery and branches are normal. Venous The inferior vena cava is normal in size and collapses greater than 50% with inspiration. Pericardium/Pleural There is no evidence of pericardial effusion. Prior Study Comparison No prior study available for comparison. Measurements 2D Linear Measurements IVSd: 0.79 0.6-0.9/0.6-1.0 cm LVIDd: 4.64 3.9-5.3/4.2-5.9 cm LVIDd Index: 2.23 2.4-3.2/2.2-3.1 cm/m2 LVIDs: 2.90 2.0-3.6 cm LVPWd: 0.77 0.7-1.1 cm LA Diam: 3.20 2.7-3.8/3.0-4.0 cm LAIDs Index: 1.54 1.5-2.3 cm/m2 LV Mass: 144.69 67-162/88-224 g LV Mass Index: 69.56 43-95/49-115 g/m2 LVOT Diam: 2.40 3.0+(-)1.3 cm 2D Systolic Function EF 4C: 60.50 >55% EF 2C: 53.10 >55% EF BiP: 57.60 >55% Mitral Valve MV Pk E: 0.79 MV PK A: 0.47 MV Decel Time: 214.00 E/A: 1.70 E'Lateral: 11.40 E'Medial: 8.16 E/E' Med: 9.70 E/E' Lat: 7.00 PHT: 63.00 MVA PHT: 3.49 Decel [place]: 3.71 Aortic Valve AoV Pk Armando: 1.04 AoV Mn Armando: 0.78 AoV VTI: 0.22 AoV Pk Grad: 4.00 Aov Mn Grad: 3.00 NELLIE Cont.VTI: 3.19 LVOT LVOT Pk Armando: 0.84 LVOT Mn Armando: 0.63 LVOT VTI: 0.16 LVOT Pk Grad: 3.00 LVOT Mn Grad: 2.00 LVOT Diam: 2.40 LVOT Area: 4.52 Diastolic Function MV Pk E: 0.79 MV Pk A: 0.47 E/A: 1.70 E'Medial: 8.16 E/E' Med: 9.70 E' Laterial: 11.40 E/E' Lat: 7.00 Right Ventricle TAPSE (mm): 25.60 TVS' Armando: 13.50 Tricuspid Valve TR Pk Armando: 1.24 TR Pk Grad: 6.00 RA Press: 8.00 RVSP: 14.00 Great Vessels Aorta Sinus of Valsalva: 3.80 2.0-3.5 cm Ao Asc: 3.40 2.1-3.4 cm Ao Arch: 3.10 Pulmonary Valve PV Pk Armando: 0.98 Peak PV Grad: 4.00 Updated in Other Vendor System with Status of Final Garrison Chun MD electronically signed on 03/01/2025 10:48:25 AM with status of Final
== END ==
LOC: HO.CARD 13:45
PROVIDERS: PCP Family Medicine; Visit Provider Family Medicine
DX: R06.02 Shortness of breath (principal)
CPT/HCPCS: 93005; 93306

== ENCOUNTER → 2025-02-28 14:08 | Outpatient (BNV) | payer MEDICAID, SELFPAY | PROVIDERS: PCP Family Medicine; Visit Provider Internal Medicine Cardiovascular Disease | DX: R06.02 Shortness of breath (principal) | CPT/HCPCS: 93010 ==

== ENCOUNTER 2025-05-02 17:12 | Emergency (ER) | payer MEDICAID, SELFPAY ==
[2025-05-02] VITALS (7 sets, daily range): BP systolic 126–144; BP diastolic 80–87; PULSE 68–101; RESP 11–22; TEMP 36.4–37.1; O2SAT 93–99; BMI 24.4
--- NOTE | ~2025-05-02 | XR_ITS ---
CLINICAL HISTORY: cough, wheezing Two views of the chest. COMPARISON: XR chest dated 02/27/25 at 16:03 EDT FINDINGS: Normal heart and mediastinal contours. Hyperinflation. No consolidation. No pleural effusion or pneumothorax. No acute fracture. IMPRESSION: 1. Hyperinflation. No consolidation. This document has been electronically signed by: Beka Thornton MD on 05/02/2025 18:31:07
--- OUTSIDE RECORDS SUMMARY | 2025-05-02 17:41 | XMS_ITS | Clinical Summary ---
Author Organization [facility] Address [address] [place] [phone] Phone Care Team Providers Care Associate Professor Of Music Name Role Phone Casandra Frances MD Primary [...] AM EDT Pulse - - Temperature 35.9 C (96.7 F) 03/11/2013 12:00 AM EDT Respiratory Rate - - Oxygen Saturation - [...] 04/09/2020 04/09/2010, 04/11/2005, 02/16/1998, Additional history exists COVID-19 Vaccine ( season) 2024 Influenza Vaccines (#1) 2025 Hepatitis B Vaccines Completed 06/25/1993, 02/05/1993, 1992 [...] age to complete this topic Care Teams Associate Professor Of Music Relationship Specialty Start Date End Date Casandra Frances MD PCP - General 04/28/17
--- OUTSIDE RECORDS SUMMARY | 2025-05-02 17:41 | XMS_ITS | Encounter Summary ---
Author Organization [employer] Address [address] [facility] 7t [place] [address] Care Team Providers Care Web Operations Specialist Name Role Phone Unavailable Primary Care Provider Unavailabl e Encounter Details Date Type Department Care Team (Late st Contact Info) Description 05/02/[address] [facility] [address] [place] [address] Poonam Alarcon RN Social History Tobacco Use Types Packs/Day Years Used Date Smoking Tobacco: Never Smokeless Tobacco: Never Sex and Gender Information Value Date Recorded Sex Assigned at Male 07/18/2022 10:39 AM EDT Legal Sex Male 10:39 AM EDT Gender Identity Male 07/18/2022 10:39 AM EDT Sexual Orientation Straight 07/18/2022 10 :39 AM EDT documented as of this encounter Miscellaneous Notes * Telephone Encounter - Poonam Alarcon RN - 05/02/2025 9:48 AM EDT Assessment: Patient presents to [facility] c/o asthma. Symptoms have been present for days. Symptoms are constant. Patient is taking (treatment/meds) none. Recent ED visit or hospitalization: Yes. Patient had inhaler and threw it out. Patient stating came out of nowhere, has been coughing, denies ear and throat pain. Denies smoking. VS as follows (if applicable): O2 95-98 Lung sounds (if applicable) End expiratory wheezes bilaterally, Location: bilateral Allergies[1] Current Medications[2] Patient Active Problem List Diagnosis Date Noted History of DVT of lower extremity 05/25/2023 Factor V Leiden (CMS/HCC) 04/24/2015 Plan of care: Report to yes Provider evaluation: Yes Poonam Alarcon RN [1] Allergies Allergen Reactions Amoxicillin Other Reaction(s): dyspnea [2] Current Outpatient Medications Medication Sig Dispense Refill albuterol 108 (90 Base) MCG/ACT inhaler Inhale 2 puffs every 4 (four) hours if needed for shortnessof breath or wheezing. 18 g 1 Xarelto 20 MG tablet TAKE 1 TABLET BY MOUTH EVERY EVENING WITH A MEAL 90 tablet 1 No current facility-administered medications for this visit. documented in this encounter Plan of Treatment Not on file documented as of this encounter Visit Diagnoses Not on filedocumented in this encounter
[2025-05-02] MEDS: Albuterol Sulfate 90 MCG 8 GM INHALER 8 PUFF INHALE (17:47)
[2025-05-02 18:26] LABS: MANUAL DIFF FLAG NO
[2025-05-02 18:27] LABS: Hematocrit 38.5 % (42.0-52.0); Hemoglobin 13.4 g/dl (14.0-18.0); Imm Gran Abs Auto 0.02 X10*3/uL (0.00-0.03); Imm Gran Pct Auto 0.2 % (0.0-0.4); Lymphocytes Absolute Auto 2.0 X10*3/uL (1.2-4.9); Mean Corpuscular HGB Conc 34.8 g/dl (31.0-36.0); Mean Corpuscular Hemoglobin 33.2 pg (27.0-33.0); Mean Corpuscular Volume 95.3 fL (80.0-98.0); NRBC Abs Auto 0.000 X10*3/uL (0.0-0.012); NRBC Pct Auto 0.0 /100WBC (0.0-0.2); Platelet Count 247 X10*3/uL (160-400); Red Blood Count 4.04 X10*6/uL (4.60-5.80); White Blood Count 10.1 X10*3/uL (4.8-10.8)
[2025-05-02 18:34] LABS: INTERNATIONAL NORM RATIO 1.6 (0.9-1.1); Prothrombin Time 18.5 SEC (10.9-12.4)
[2025-05-02] MEDS: Magnesium Sulfate/H2O 2 GM/50 ML PIGGYBACK IV (18:34)
[2025-05-02 18:45] LABS: Anion Gap 14 (12-20); Blood Urea Nitrogen 13 mg/dL (9-16); Calcium 9.1 mg/dL (8.4-10.2); Carbon Dioxide 25 mmol/L (22-29); Chloride 104 mmol/L (96-108); Creatinine Clr Calc Pharmacy 151.1; Estimated Glomerular Filt Rate > 60; Potassium 3.4 mmol/L (3.3-5.1); Sodium 140 mmol/L (135-145)
--- NOTE | 2025-05-02 18:46 | ED_ITS ---
HPI - Asthma General Chief Complaint: Upper Respiratory Symptoms Stated Complaint: difficulty breathing, hx of blood clots Time Seen by Provider: 05/02/25 17:52 Source: patient Mode of arrival: ambulatory Limitations: no limitations History of Present Illness ED Provider: IZABELLA AVENDANO Narrative: 34 yo male with PMH of PE x 6 due to factor V Leiden - never misses his xarelto, new 2 months of reactive airway disease carries an inhaler. Last night he developed more wheezing felt he couldn't breathe. No fevers, no chest pain states this does not feel like his PE he knows he has had 6 of them. He has no fevers but is wheezing with a dry cough. He notes he has inhaler but it wasn't helping. He has fam hx of asthma. He does not smoke. MD complaint: shortness of breath and wheezing Onset (ago): day(s) (1) Severity: moderate Context: none known Associated symptoms: dry cough Asthma History: adult onset Treatments Prior to Arrival: inhaled bronchodilator Related Data Home Medications ?Medication ?Instructions ?Recorded ?Confirmed rivaroxaban 20 mg tablet (Xarelto) 20 mg PO DAILY@1700 08/12/24 08/13/24 Previous Rx's ?Medication ?Instructions ?Recorded cephalexin 500 mg capsule 500 mg PO BID #14 caps 08/15 doxycycline monohydrate 100 mg 100 mg PO BID #14 caps 08/15/24 capsule oxycodone 5 mg tablet 5 mg PO Q6H PRN Pain, Moderate(Pain Scale 4-6) #12 tabs fluticasone propionate 50 1 inh inhalation BID #60 ea 05/02/25 mcg/actuation blister powder for inhalation prednisone 20 mg tablet 40 mg (2 x 20 mg) PO DAILY 5 days 05/02/25 #10 tabs Allergies Allergy/AdvReac Type Severity Reaction Status Date / Time amoxicillin Allergy Shortness Verified 05/02/25 17:28 of Breath Review of Systems 2 Review of Systems: Constitutional : No Fever, No Chills ENT/Mouth : No Hoarseness, No sore throat, No Rhinorrhea Eyes: No Redness, No Discharge, No Vision Changes Cardiovascular : No Chest Pain, positive SOB, positive Dyspnea on Exertion, No Edema Respiratory : positive Cough, No Sputum, positive Wheezing, Gastrointestinal : No Nausea, No Vomiting, No Diarrhea, No abdominal Pain Genitourinary : No Dysuria, No Hematuria Musculoskeletal : No joint pain, No Myalgias Skin : No rash Neuro : No Weakness, No Numbness, No Headache Psych : No anxiety, depression Heme/Lymph: No Bruising, No Bleeding Endocrine : No Polyuria, No Polydipsia All other systems reviewed and are negative Yes all other systems are reviewed and are negative [facility] Past Medical History Attestation statement: The following information was validated with the patient. Source: old records reviewed Medical History Burn Pulmonary embolism Factor 5 Leiden mutation, heterozygous No pertinent past medical history Social History Social History Household Members: None Housing: Apartment Patient Tobacco Use Status: Never used Tobacco Substance Use Type: Marijuana Advance Directives: No Advance Directives Information Provided: No Do you have a plan to hurt others: No Plan service: No Physical Exam 2 Vital Signs: Vital Signs: Last Vital Signs Temp 97.9 F 05/02/25 18:20 Pulse 90 05/02/25 19:14 Resp 11 L 05/02/25 19:14 BP 134/80 05/02/25 18:20 Pulse Ox 95 05/02/25 18:20 O2 Del Method Room Air 05/02/25 18:20 BMI result Body Mass Index 24.4 Appearance: Alert. Oriented X3. No acute distress. Eyes: Pupils equal, round and reactive to light. ENT: Pharynx normal. Neck: Normal inspection. Neck supple. CVS: Normal heart rate and rhythm. Pulses normal. Respiratory: No respiratory distress. Breath sounds diffuse exp wheezes Abdomen: Soft and nontender. Skin: Skin warm and dry. Normal skin color. Normal skin turgor. Extremities: No lower extremity edema. No calf ttp Neuro: Oriented X 3. No motor deficit. No sensory deficit. CN2-12 intact Course Course Course Narrative: he does look better but refuses to stay wants to leave AMA Medications Administered Discontinued Medications Generic Name Dose Route Start Last Admin Trade Name Freq PRN Reason Stop Dose Admin Albuterol Sulfate 8 puff 05/02/25 17:45 05/02/25 17:47 Albuterol Sulfate 90 Mcg 8 Gm Inhaler INHALE 05/02/25 17:46 8 puff ONCE ONE Administration Albuterol Sulfate 2 puff 05/02/25 17:50 05/02/25 19:10 Albuterol Sulfate 90 Mcg 8 Gm Inhaler INHALE 05/02/25 17:51 Not Given ONCE ONE Albuterol/Ipratropium 3 ml 05/02/25 17:59 05/02/25 19:14 Albuterol/Iprat 2.5/0.5mg 3 Ml Ampul.Neb INHALE 05/02/25 18:00 3 ml ONCE ONE Administration Magnesium Sulfate 2 gm in 50 mls @ 25 mls/hr 05/02/25 17:31 05/02/25 19:13 Magnesium Sulfate/H2o IV 05/02/25 19:30 Infused ONCE ONE Infusion Methylprednisolone Sodium Succinate 60 mg 05/02/25 17:31 05/02/25 18:19 Methylprednisolone Sod Succ 125 Mg/2 Ml Vial IVPUSH 05/02/25 17:32 60 mg ONCE ONE Administration Medical Decision Making Medical Decision Making MDM Narrative: 34 yo male with PMH of PE x 6 due to factor V Leiden - never misses his xarelto now here with 24 hours of wheezing he notes this is different from his PE - I am suspecting asthma exacerbation at this time will need labs, CXR, viral panel - IV steroids, IV mag, repeat nebs Differential Diagnosis Differential Diagnoses: The differential diagnosis associated with the presentation includes asthma, viral syndrome Admission/Observation Consideration of admission/observation: Escalation of care including admission/observation considered desaturated to 84% on walking but 100% at rest. He was 100% at rest during our discussion he refuses to stay. He is alert and oriented has capacity to talk about our concerns and hypoxia with risk of falls and head trauma he still wants to leave AMA - will DC on prednisone and to start steroid inhaler once course is complete Lab Data MDM Lab Attestation statement: I reviewed the patient's lab results. 05/02/25 18:17 05/02/25 18:17 Labs: Lab Results 05/02/25 Range/Units 18:17 WBC 10.1 (4.8-10.8) X10*3/uL RBC 4.04 L (4.60-5.80) X10*6/uL Hgb 13.4 L (14.0-18.0) g/dl Hct 38.5 L (42.0-52.0) % MCV 95.3 (80.0-98.0) fL MCH 33.2 H (27.0-33.0) pg MCHC 34.8 (31.0-36.0) g/dl RDW 12.6 (11.0-16.0) % Plt Count 247 (160-400) X10*3/uL MPV 8.4 L (9.4-12.4) fL Immature Gran % (Auto) 0.2 (0.0-0.4) % Neut % (Auto) 69.0 (45-73) % Lymph % (Auto) 20.1 (20-40) % [place] % (Auto) 5.1 (2-11) % Eos % (Auto) 4.9 H (0-4) % Baso % (Auto) 0.7 (0-2) % Lymph # (Auto) 2.0 (1.2-4.9) X10*3/uL [place] # (Auto) 0.5 (0.1-1.2) X10*3/uL Eos # (Auto) 0.5 H (0.0-0.4) X10*3/uL Baso # (Auto) 0.1 (0.0-0.2) X10*3/uL Abs Immat Gran (auto) 0.02 (0.00-0.03) X10*3/uL Absolute Neuts (auto) 7.0 (2.0-8.3) x10*3/uL Absolute Nucleated RBC 0.000 (0.0-0.012) X10*3/uL Nucleated RBC % (auto) 0.0 (0.0-0.2) /100WBC PT 18.5 H (10.9-12.4) SEC INR 1.6 H (0.9-1.1) Sodium 140 (135-145) mmol/L Potassium 3.4 (3.3-5.1) mmol/L Chloride 104 (96-108) mmol/L Carbon Dioxide 25 (22-29) mmol/L Anion Gap 14 (12-20) BUN 13 (9-16) mg/dL Creatinine 0.77 (0.5-1.4) mg/dL Estim Creat Clear Calc 151.1 Estimated GFR > 60 Random Glucose 89 (60-115) mg/dL Calcium 9.1 (8.4-10.2) mg/dL Influenza Type A (PCR) NEGATIVE (Negative) Influenza Type B (PCR) NEGATIVE (Negative) RSV RNA Qual (PCR) NEGATIVE (Negative) SARS-CoV-2 RNA (RT-PCR) NEGATIVE (Negative) Independent Interpretation I performed an independent interpretation of an: Plain X-Ray (normal ) Radiology Impression Discussion of test interpretation with radiology: I have reviewed the radiologist's reading. External Record Review External record reviewed: Outpatient record Prescription Management I considered prescription management with: Other Discharge Plan Discharge Clinical Impression: Diffuse wheezing, Hypoxia Patient Disposition: Left Against Medical Advice Instructions: Against Medical Advice (ED), Hypoxemia (DC), Wheezing (ED) Additional Instructions: your oxygen level goes to 84 when walking this is dangerous you were offered admission but refused you have normal chest xray and reassuring labs, no covid/flu carry your rescue inhaler when you are done with your prednisone start the steroid inhaler rinse mouth after return for any worsening symptoms or concerns AT ANY TIME Prescriptions: New fluticasone propionate 50 mcg/actuation blister with device 1 inh inhalation BID Qty: 60 0RF Rx Instructions: rinse mouth after prednisone 20 mg tablet 40 mg PO DAILY 5 Days Qty: 10 0RF No Action Xarelto 20 mg tablet 20 mg PO DAILY@1700 oxycodone 5 mg Tablet 5 mg PO Q6H PRN (Reason: Pain, Moderate(Pain Scale 4-6)) Qty: 12 0RF Rx Instructions: Partial Fill upon patient request. doxycycline monohydrate 100 mg capsule 100 mg PO BID Qty: 14 0RF cephalexin 500 mg capsule 500 mg PO BID Qty: 14 0RF Stand Alone Forms: Work/School Release Print Language: Monegasque
[2025-05-02] MEDS: Albuterol/Iprat 2.5/0.5MG 3 ML AMPUL.NEB INHALE (19:14)
[2025-05-02 19:25] LABS: Resp Syncy Virus RNA Qual PCR NEGATIVE (Negative); SARS COV2 PCR INHOUSE NEGATIVE (Negative)
--- NOTE | 2025-05-02 20:02 | MHC.EDTECH ---
Farheen assisted with ambulation trial. During the trial patient's O2 went down to 84. Walked patient 2x to make sure it was accurated. RN and DR dwyer .
--- NOTE | 2025-05-02 21:51 | PC.NURSE ---
Back documentation Pt stated he wanted to go AMA refuses to leave.Provider notified AMA form signed pt aware of the risks. AMA form signed by patient, this nurse, second witness provided. and Provider signed form as well.
== END 2025-05-02 22:08 | disposition left against medical advice (07) ==
PROVIDERS: Nurse Practitioner Family; Emergency Provider Emergency Medicine; PCP Family Medicine
DX: R06.02 Shortness of breath (principal); R09.02 Hypoxemia; Z79.01 Long term (current) use of anticoagulants; Z79.899 Other long term (current) drug therapy; Z03.818 Encounter for observation for suspected exposure to other biological agents ruled out
CPT/HCPCS: 36415; 71046; 80048; 85025; 85610; 87637; 94640; 96365; 96375; 99285; J2919; J3475

== ENCOUNTER → 2025-05-02 17:31 | Outpatient (BNV) | payer MEDICAID, SELFPAY | PROVIDERS: Emergency Provider Emergency Medicine; PCP Family Medicine; Visit Provider Radiology Diagnostic Radiology | DX: J98.4 Other disorders of lung (principal) | CPT/HCPCS: 71046 ==

== ENCOUNTER 2025-05-14 08:03 | Outpatient (REF) | payer MEDICAID, SELFPAY ==
--- OUTSIDE RECORDS SUMMARY | 2025-05-14 08:06 | XMS_ITS | Encounter Summary ---
Author Organization [employer] Address [address] [place] [address] 7t [place] [address] Care Team Providers Care Aircraft Power Plant Assembler Name Role Phone Unavailable Primary Care Provider Unavailabl e Reason for Visit * Reason Comments Med Refill Encounter Details Date Type Department Care Team ([facility] st Contact Info) Description 03/20/[address] [facility] [address] [place] [address] Courtney Núñez MD [address] [place], [place] [phone] Social History Tobacco Use Types Packs/Day Years Used Date Smoking Tobacco: Never Smokeless Tobacco: Never Sex and Gender Information Value Date Recorded Sex Assigned at Male 07/18/2022 10:39 AM EDT Legal Sex Male 10:39 AM EDT Gender Identity Male 07/18/2022 10:39 AM EDT Sexual Orientation Straight 07/18/2022 10 :39 AM EDT documented as of this encounter Plan of Treatment Not on file documented as of this encounter Visit Diagnoses Not on filedocumented in this encounter
--- OUTSIDE RECORDS SUMMARY | 2025-05-14 08:06 | XMS_ITS | Encounter Summary ---
Author Organization [employer] Address [address] [facility] [address]t [place] [address] Care Team Providers Care Sales Analyst Name Role Phone Unavailable Primary Care Provider Unavailabl e Reason for Visit * Reason Comments Med Refill Encounter Details Date Type Department Care Team ([facility] st Contact Info) Description 05/25/2023 Refill [facility] [address] [place], [place] [phone] Ivana Brar MD [address] [place] [address] Social History Tobacco Use Types Packs/Day Years [...]
--- OUTSIDE RECORDS SUMMARY | 2025-05-14 08:06 | XMS_ITS | Encounter Summary ---
Author Organization [employer] Address [address] [facility] [address]t [place] [address] Care Team Providers Care Business Services Sales Representative Name Role Phone Unavailable Primary Care Provider Unavailabl e Encounter Details Date Type Department Care Team (Late st Contact Info) Description 11/29/2023 Telephone [facility] [address] [place] [address] Jad Huang MD [address] [place] [address] Social History Tobacco Use Types Packs/Day Years [...]
--- OUTSIDE RECORDS SUMMARY | 2025-05-14 08:06 | XMS_ITS | Encounter Summary ---
Author Organization [employer] Address [address] [place] [address] 7t [place] [address] Care Team Providers Care Labor Relations Officer Name Role Phone Unavailable Primary Care Provider Unavailabl e Reason for Visit * Reason Comments Med Refill Encounter Details Date Type Department Care Team ([facility] st Contact Info) Description 10/29/2023 Refill [facility] [address] [place] [address] Courtney Núñez MD [address] [place] [address] Social History Tobacco Use Types Packs/Day Years [...]
--- OUTSIDE RECORDS SUMMARY | 2025-05-14 08:06 | XMS_ITS | Encounter Summary ---
Author Organization [employer] Address [address] [facility] 7t [place] [address] Care Team Providers Care Inside Sales Coordinator Name Role Phone Unavailable Primary Care Provider Unavailabl e Reason for Visit * Reason Comments Med Refill Encounter Details Date Type Department Care Team (Late st Contact Info) Description 05/02/2025 Refill [facility] [address] [place] [address] Mary Stevens DO [address] [place], [place] [phone] Social History Tobacco Use Types Packs/Day Years [...]
--- OUTSIDE RECORDS SUMMARY | 2025-05-14 08:06 | XMS_ITS | Encounter Summary ---
Author Organization [employer] Address [address] [place] [address] 7t [place] [address] Care Team Providers Care Wafer Abrading Machine Tender Name Role Phone Unavailable Primary Care Provider Unavailabl e Reason for Visit * Reason Comments Med Refill Encounter Details Date Type Department Care Team ([facility] st Contact Info) Description 03/22/2024 Refill [facility] [address] [place] [address] Courtney Núñez MD [address] [place], [place] [phone] Social History Tobacco Use Types Packs/Day Years [...]
--- OUTSIDE RECORDS SUMMARY | 2025-05-14 08:07 | XMS_ITS | Clinical Summary ---
Author Organization [employer] Address [address] [facility] [address] [place] [address] Care Team Providers Care Gymnastic Coach Name Role Phone Unavailable Primary Care Provider Unavailabl e Allergies Active Allergy Reactions Criticality Noted Date Comments Amoxicillin 05/25/2023 Other Reaction(s): dyspnea Medications Xarelto 20 MG tabletIndication s:Factor V Leiden (CMS/HCC),Histor y of DVT of lower extremity TAKE 1 TABLET BY MOUTH EVERY EVENING WITH A MEAL 90 tablet 1 5 Active albuterol 108 (90 Base) MCG/ACT inhaler Inhale 2 puffs every 4 (four) hours if needed for shortness of breath or wheezing. 18 g 1 5 02/28/20 26 Active albuterol 108 (90 Base) MCG/ACT inhalerIndicatio ns:Mild intermittent asthma with acute exacerbation Inhale 2 puffs every 4 (four) hours if needed for wheezing. 18 g 2 5 05/02/20 26 Active albuterol 108 (90 Base) MCG/ACT inhaler Inhale 2 puffs every 6 (six) hours if needed for wheezing. 18 g 11 5 05/06/20 26 Active fluticasone furoate (Arnuity Ellipta) 100 MCG/ACT inhaler Inhale 1 puff Once per day. Rinse mouth with water after use to reduce aftertaste and incidence of candidiasis. Do not swallow. 1 each 5 05/06/20 26 Active predniSONE (Deltasone) 20 MG tabletIndication s:Mild intermittent asthma with acute exacerbation Take 2 tablets (40 mg) by mouth Once per day for 5 days. 10 tablet 5 05/07/20 25 Hospital, Clinic, or Other Facility Administered Medication Ordered Dose Route Frequency Start Date End Date Status albuterol (2.5 MG/3ML) 0.083% nebulizer solution 2.5 mgIndications:Mild intermittent asthma with acute exacerbation 2.5 mg NEBULIZATION Once 05/02/2025 05/02/2025 Ended Active Problems Problem Noted Date Diagnosed Date Mild intermittent asthma with acute exacerbation 05/02/2025 Oxygen desaturation 05/02/2025 Assessment & Plan (05/02/2025 4:19 PM EDT): I presented the case to [facility] emergency room patient's friend will drive him to the hospital, patient declines to go by ambulance Patient was counseled about consequences of not going to the hospital right away, I let him know if that if he has a clot on his lung he can he is aware of this he understood and read back to me History of DVT of lower extremity 05/25/2023 Assessment & Plan (05/25/2023 9:39 AM EDT): PMX of factor V leiden mutation with right LE DVT 10 years ago s/p thrombectomy and IVC filter placed and later removed with recurrent episodes in the past while on warfarin for subtherapeutic INR -since then on xarelto 20 mg daily -taking consistently with no problems for years but run out for 2 days -requesting refill of xarelto today -will do chem,CBC,TSH today given no labs recently-will call pt w lab results -refill today xarelto -send message to SALES MARKETING DIRECTOR apt team to help pt scheduling annual -new pt visit -request [place] -to try to get records from previous labor and delivery registered nurse at [facility] Factor V Leiden 04/24/2015 Encounters Date Type Department Care Team Description 05/06/2025 1:20 PM EDT Office Visit [facility] [address] [place] [phone] Name, MD Adalberto Uncomplicated asthma, unspecified asthma severity, unspecified whether persistent (Primary Dx) 05/06/2025 Travel 05/02/2025 1:40 PM EDT Office Visit [facility] [address] [address] Courtney Armstrong MD Oxygen desaturation (Primary Dx); Mild intermittent asthma with acute exacerbation 05/02/2025 Orders Only GENERIC EXTERNAL DATA DEPARTMENT Provider, Generic External Data 05/02/2025 Telephone [facility] [address] [place] [phone] Poonam Alarcon RN 05/02/2025 Travel 05/02/2025 Refill [facility] [address] [place] [phone] Mary Stevens DO 02/27/2025 3:20 PM EDT Office Visit [facility] [address] [address] Mary Stevens DO Shortness of breath (Primary Dx) 02/27/2025 Telephone [facility] [address] [place] [address] Gela Montiel RN from Last 3 Months Immunizations Immunization Administration Dates Next Due DTP 02/16/1998, 4,06/25/1993,04/07,02/05/1993 HPV, Quadrivalent 04/30/2012 Hep B, Adolescent or Pediatric 06/25/1993,1992,1992 Hib (PRP-T) 08/09/1994, 3,04/07/1993,02/05 MMR 02/16/1998,08/09/1994 Meningococcal MCV4P [id number]-135 04/03/2009 OPV, Trivalent 02/16/1998, 4,04/07/1993,02/05 TD (adult), 2 Lf tetanus tox oid, preservative free, adsorbed 04/11/2005 Tdap 03/18/2015,04/09/2010 Varicella 04/03/2009,01/31/2003 Social History Tobacco Use Types Packs/Day Years Used Date Smoking Tobacco: Never Smokeless Tobacco: Never Tobacco Cessation:Counseling Given: Not Answered Sex and Gender Information Value Date Recorded Sex Assigned at Male 07/18/2022 10:39 AM EDT Legal Sex Male 10:39 AM EDT Gender Identity Male 07/18/2022 10:39 AM EDT Sexual Orientation Straight 07/18/2022 10 :39 AM EDT Last Filed Vital Signs Vital Sign Reading Time Taken Comments Blood Pressure 126/82 05/06/2025 1:15 PM EDT Pulse 92 05/06/2025 1:15 PM EDT Temperature 36.9 C (98.4 F) 05/06/2025 1:15 PM EDT Respiratory Rate 18 05/06/2025 1:15 PM EDT Oxygen Saturation 97% 05/06/2025 1:15 PM EDT Inhaled Oxygen Concentration - - Weight 86.2 kg (190 lb) 05/06/2025 1:15 PM EDT Height 185.4 cm (6' 1 ) 03/22/2024 1:19 PM EDT Body Mass Index 25.07 03/22/2024 1:19 PM EDT Plan of Treatment Health Maintenance Due Date Last Done Comments Depression Screening 1992 HIV Screening 1992 SDOH Screening 1992 Disability Screening 1992 Alcohol/Substance Use Screening 2004 Family Planning (PISQ) 2007 Hepatitis C Screening 2010 Pneumococcal Vaccine: Pediatrics (0 to 5 Years) and At-Risk Patients (6 to 49) Years (1 of 2 - PCV) 2011 HPV Vaccines (2 - Male 3-dose series) 05/28/2012 04/30/2012 COVID-19 Vaccine (2 - season) 2024 04/06/2021 Influenza Vaccine (#1) 2025 Tobacco Screening 05/06/2026 05/06/2025 DTaP/Tdap/Td Vaccines (9 - Td or Tdap) 08/12/2034 08/12/2024, 03/18/2015, 04/09/2010, Additional history exists Zoster Vaccines (1 of 2) 2042 RSV Patients and Patients Aged 60 years or older (1 - 1-dose 75+ series) 2067 Hepatitis B Vaccines Completed 06/25/1993, 02/05/1993, 1992 HIB Vaccines Completed 08/09/1994, 04/1993, 04/07/1993, Additional history exists IPV Vaccines Completed 02/16/1998, 07/20, 04/07/1993, Additional history exists Meningococcal Vaccine Completed 04/03/2009 Hepatitis A Vaccines Aged Out No long er eligible based on patient's age to complete this topic Meningococcal B Vaccine Aged Out No l onger eligible based on patient's age to complete this topic RSV under 20 months Aged Out No longe r eligible based on patient's age to complete this topic Rotavirus Vaccines Aged Out No longer eligible based on patient's age to complete this topic Procedures Procedure Name Priority Date/Time Associated Diagnosis Comments XR CHEST 2 VIEWS Routine 05/02/2025 6:31 PM EDT BASIC METABOLIC PANEL Routine 05/02/2025 6:17 PM EDT PROTHROMBIN TIME-INR Routine 05/02/2025 6:17 PM EDT CBC WITH AUTO DIFFERENTIAL Routine 05/02/2025 6:17 PM EDT SARS COV2/INFLUENZA A/B AND RSV RNA QL NAAT Routine 05/02/2025 6:17 PM EDT XR CHEST 2 VIEWS STAT 02/27/2025 3:03 PM EDT Shortness of breath from Last 3 Months Results * XR Chest 2 Views (05/02/2025 6:31 PM EDT) Only the most recent of2 resultswithin the time period is included. Anatomical Region Laterality Modality Chest Radiographic Shea ging 05/02/2025 6:31 PM EDT Narrative 05/02/2025 6:32 PM EDT [address] [address] XRay Report Signed Patient: Romulo Cuellar MR#: [id number] 10 : 1990 Acct:[id number] Age/Sex: 34 / M ADM Date: 05/02/25 Loc: .ED Attending Dr: Ordering Physician: Shirley Purcell NP Date of Service: 05/02/25 Procedure(s): XR chest 2V Accession Number(s): [id number] cc: Mary Stevens DO; Shirley Purcell NP CLINICAL HISTORY: cough, wheezing Two views of the chest. COMPARISON: XR chest dated 02/27/25 at 16:03 EDT FINDINGS: Normal heart and mediastinal contours. Hyperinflation. No consolidation. No pleural effusion or pneumothorax. No acute fracture. IMPRESSION: 1. Hyperinflation. No consolidation. This document has been electronically signed by: Beka Thornton MD on 05/02/2025 18:31:07 Dictated By: Beka Thornton MD Signed By: <Electronically signed by Beka Thornton MD in OV> 05/02/251831 DD/ 30 TD/TT: 05/02/251830 Member Service Representative: Procedure Note Donotuseinterpreter, Image - 05/02/2025 [place] [address] XRay Report Signed Patient: Romulo Cuellar LMR#: [id number] 10 : 1990Acct:[id number] Age/Sex: 34 / MADM Date: 05/02/25 Loc: .ED Attending Dr: Ordering Physician: Shirley Purcell NP Date of Service: 05/02/25 Procedure(s): XR chest 2V Accession Number(s): [id number] cc: Mary Stevens Alissa NP CLINICAL HISTORY: cough, wheezing Two views of the chest. COMPARISON: XR chest dated 02/27/25 at 16:03 EDT FINDINGS: Normal heart and mediastinal contours. Hyperinflation. No consolidation. No pleural effusion or pneumothorax. No acute fracture. IMPRESSION: 1. Hyperinflation. No consolidation. This document has been electronically signed by: Beka Thornton MD on 05/02/2025 18:31:07 Dictated By: Beka Thornton MD Signed By: <Electronically signed by Beka Thornton MD in OV> 05/02/251831 DD/ 30 TD/TT: 05/02/251830 Member Service Representative: [facility] External Provider IMG XR PROCEDURES Edited Result - Final * SARS-CoV-2 RNA, Influenza A/B, and RSV RNA, Ql NAAT (05/02/2025 6:17 PM EDT) Pathologist [facility] Influenza A PCR NEGATIVE Negative [facility] Influenza B PCR NEGATIVE Negative [facility] Resp Syncy Virus RNA Qual PCR NEGATIVE Negative [facility] SARS COV2 PCR NEGATIVE Negative [facility] Comment:All test results mus t be correlated with clinical findings.Negative results do not preclude SARS-CoV2, influenza Avirus, influenza B virus and/or RSV infectionand should not be used as the sole basis for treatment orother patient management decisions. Negative results must becombined with clinical observations, patient history, andepidemiological information.This test has not been evaluated for monitoring treatment ofinfection.This test has been authorized by the FDA under an EmergencyUse Authorization (EUA) for use by authorized laboratories.Testing performed on the [employer] GeneXpert utilizingreal-time RT-PCR.All SARS CoV2 and positive influenza A/B results arereported to [facility]. 05/02/2025 6:17 PM EDT 05/02/2025 6:39 PM EDT Generic External Data Provider LAB MICROBIOLOGY - GENERAL ORDERABLES Final Result [facility] [address] [place] [phone] * (ABNORMAL) CBC auto differential (05/02/2025 6:17 PM EDT) White Blood Count 10.1 4.8 - 10.8 X10*3/uL [facility] Red Blood Count 4.04(L) 4.60 - 5.80 X10*6/uL [facility] Hemoglobin 13.4(L) 14.0 - 18.0 g/dl [facility] Hematocrit 38.5(L) 42.0 - 52.0 % [facility] Mean Corpuscular Volume 95.3 80.0 - 98.0 fL [facility] Mean Corpuscular Hemoglobin 33.2(H) 27.0 - 33.0 pg [facility] Mean Corpuscular HGB Conc 34.8 31.0 - 36.0 g/dl [facility] Red Cell Distribution Width 12.6 11.0 - 16.0 % [facility] Platelet Count 247 160 - 400 X10*3/uL [facility] Mean Platelet Volume 8.4(L) 9.4 - 12.4 fL [facility] Neutrophils Percent Auto 69.0 45 - 73 % [facility] Imm Gran Pct Auto 0.2 0.0 - 0.4 % [facility] Lymphocytes Percent Auto 20.1 20 - 40 % [facility] Monocytes Percent Auto 5.1 2 - 11 % [facility] Eosinophils Percent Auto 4.9(H) 0 - 4 % [facility] Basophils Percent Auto 0.7 0 - 2 % [facility] NRBC Pct Auto 0.0 0.0 - 0.2 /100WBC [facility] Neutrophils Absolute Auto 7.0 2.0 - 8.3 x10*3/uL [facility] Imm Gran Abs Auto 0.02 0.00 - 0.03 X10*3/uL [facility] Lymphocytes Absolute Auto 2.0 1.2 - 4.9 X10*3/uL [facility] Monocytes Absolute Auto 0.5 0.1 - 1.2 X10*3/uL [facility] Eosinophils Absolute Auto 0.5(H) 0.0 - 0.4 X10*3/uL [facility] Basophils Absolute Auto 0.1 0.0 - 0.2 X10*3/uL [facility] NRBC Abs Auto 0.000 0.0 - 0.012 X10*3/uL [facility] 05/02/2025 6:17 PM EDT 05/02/2025 6:24 PM EDT us Generic External Data Provider LAB BLOOD ORDERAB LES Final Result Performing Organization Address [facility] Co de Phone Number [facility] [address] [place] [phone] * (ABNORMAL) Prothrombin Time-INR (05/02/2025 6:17 PM EDT) Pathologist [facility] Prothrombin Time 18.5(H) 10.9 - 12.4 SEC [facility] INTERNATIONAL NORM RATIO 1.6(H) 0.9 - 1.1 [facility] Comment:INTERNATIONAL NORMAL IZED RATIO (INR) REFERENCE RANGES Reference RangeFor patients not on anticoagulant therapy: 0.9 - 1.1INR ranges for oral anticoagulanttherapy:For prevention and treatment of venous thrombosis and pulmonary embolism: 2.0 - 3.0For acute myocardial infarction with aspirin therapy: 2.0 - 3.0For acute myocardial infarction without aspirin therapy: 3.0 - 4.0For patients with mechanical prosthetic heart valves: 2.5 - 3.5 05/02/2025 6:17 PM EDT 05/02/2025 6:24 PM EDT us Generic External Data Provider LAB BLOOD ORDERAB LES Final Result Performing Organization Address [facility] Co de Phone Number [facility] [address] [place] [phone] * Basic Metabolic Panel (05/02/2025 6:17 PM EDT) Pathologist [facility] Sodium 140 135 - 145 mmol/L [facility] Potassium 3.4 3.3 - 5.1 mmol/L [facility] Chloride 104 96 - 108 mmol/L [facility] Carbon Dioxide 25 22 - 29 mmol/L [facility] Anion Gap 14 12 - 20 [facility] Urea Nitrogen (BUN) 13 9 - 16 mg/dL [facility] Creatinine, Serum 0.77 0.5 - 1.4 mg/dL [facility] Creatinine Clr Calc Pharmacy 151.1 [facility] Comment:eGFR (calculated fro m the MDRD study equation) and eCrCl(calculated from the Cockcroft-Gault equation) are based ondifferent parameters and may not yield comparable results.If eCrCl result is absurd, please check patient'sheight/weight. Estimated Glomerular Filt Rate >60 [facility] Comment:Chronic Kidney Disea se: Estimated GFR < 60 mL/min/1.77c0Fmifoo Kidney Disease: Estimated GFR < 15 mL/min/1.73m2 Glucose 89 60 - 115 mg/dL [facility] Calcium 9.1 8.4 - 10.2 mg/dL [facility] 05/02/2025 6:17 PM EDT 05/02/2025 6:24 PM EDT us Generic External Data Provider LAB BLOOD ORDERAB LES Final Result Performing Organization Address City/State/[facility] Co de Phone Number [facility] [address] [place] [phone] from Last 3 Months [facility] * Guarantor: Romulo Cuellar Account Type Relation to Patient Date of Phone Billing Address Personal/[place] [address]
--- OUTSIDE RECORDS SUMMARY | 2025-05-14 08:07 | XMS_ITS | Encounter Summary ---
Author Organization [facility] Address [address] [place] [phone] Phone Care Team Providers Care Revenue Field Agent Name Role Phone Casandra Frances MD Primary Care Provider Unava ilable Encounter Details Date Type Department Care Team (Late st Contact Info) Description 01/05/2012 Documentation [facility] [address] [place], [place] [phone] Family Medicine, Physician [address] [place] [address] Social History Tobacco Use Types Packs/Day Years Used Date Smoking Tobacco: Never Assessed Sex and Gender Information Value Date Recorded Sex Assigned at Not on file Legal Sex Male 4:46 PM EDT Gender Identity Not on file Sexual Orientation Not on file documented as of this encounter Plan of Treatment Not on file documented as of this encounter Visit Diagnoses Not on filedocumented in this encounter Care Teams Revenue Field Agent Relationship Specialty Start Date End Date Casandra Frances MD PCP - General 04/28/17 documented as of this encounter
--- OUTSIDE RECORDS SUMMARY | 2025-05-14 08:07 | XMS_ITS | Clinical Summary ---
Author Organization [facility] Address [address] [place] [phone] Phone Care Team Providers Care Hris Administrator Name Role Phone Casandra Frances MD Primary [...] age to complete this topic Care Teams Hris Administrator Relationship Specialty Start Date End Date Casandra Frances MD PCP - General 04/28/17
--- OUTSIDE RECORDS SUMMARY | 2025-05-14 08:07 | XMS_ITS | Encounter Summary ---
Author Organization [facility] Address [address] [place] [phone] Phone Care Team Providers Care Wedding Decorator Name Role Phone Casandra Frances MD Primary Care Provider Unava ilable Encounter Details Date Type Department Care Team (Late st Contact Info) Description 05/04/2017 Conversion Encounter [facility] - [address] [address] Social History Tobacco Use Types Packs/Day Years [...] on filedocumented in this encounter Care Teams Wedding Decorator Relationship Specialty Start Date End Date Casandra Frances MD PCP - General 04/28/17 documented as of this encounter
--- OUTSIDE RECORDS SUMMARY | 2025-05-14 08:07 | XMS_ITS | Encounter Summary ---
Author Organization [facility] Address [address] [place] [address] Care Team Providers Care Scale Balancer Name Role Phone Gisella Woodruff MD Primary Care Provider Unava ilable Reason for Visit * Reason Onset Date Comments Laceration 10/31/2016 Encounter Details Date Type Department Care Team Description 10/31/2016 Telephone Adult Medicine [address] [address] Dario Rivera MD Laceration Social History Tobacco Use Types Packs/Day Years Used Date Smoking Tobacco: Never Alcohol Use Standard Drinks/Week Comments Yes 0 (1 standard drink = 0.6 oz pur e alcohol) occasionally Sex Assigned at Date Recorded Not on file documented as of this encounter Miscellaneous Notes * Telephone Encounter - Coral Kofi Alegria - 10/31/2016 3:13 PM EST [facility] - Telephone Triage Documentation CHIEF COMPLAINT:small cut on hand 3 days ago from metal on attic blower. Not deep. Does not look infected. Last TDAP 03/2015.Agrees to keep clean and dry. Will call if symptom change or area looks infected. PCP: Gisella Woodruff LMP/EDC:na Current Outpatient Prescriptions Medication Sig Dispense Refill ??? warfarin (COUMADIN) 5 MG tablet Take 1-1.5 Tabs by mouth daily. May cause heavy bleeding. Take at same time every day. Do not change dietary habits.or as dir by the coumadin 60 Tab 2 ??? oxycodone-acetaminophen (PERCOCET) 5-325 MG per tablet Take 1 tablet by mouth every 6 hours as needed for Pain. 20 Tab 0 ??? Enoxaparin Sodium (LOVENOX) 100 MG/ML Solution Inject 84 mg into the skin 2 times daily. 20 Syringe 0 ??? isotretinoin (ACCUTANE) 40 MG capsule Take 40 mg by mouth 2 times daily. No current facility-administered medications for this visit. Allergies: Review of patient's allergies indicates no known allergies. Patient Active Problem List Diagnosis Code ??? History of DVT of lower extremity Z86.718 ??? Factor V Leiden D68.51 DISPOSITION:Advice given. Pt. will call back if worsens or no improvement. REFERENCE:[facility] Telephone Triage Protocols for Nurses by Zulema Kirk CALLER UNDERSTANDS & AGREES WITH ADVICE:YES * Telephone Encounter - Delicia Greer - 10/31/2016 3:08 PM EST Symptoms patient is presenting: the pt has 2 inch laceration from a snowblower on his hand he wantsto know if he needs a tetnus shot new pt to Dr Woodruff If pain or injury related was it due to an accident at work or from a motor vehicle accident? NO If yes, gather 3rd democrat insurance information Date of accident/Injury: How long has patient had these symptoms?: PCP: Gisella Woodruff Payor: HOOD/LUCIANA POS / Plan: PPO $20 [place] [id number] / Product Type: PPO [id number] documented in this encounter Plan of Treatment Not on file documented as of this encounter Visit Diagnoses Not on filedocumented in this encounter Care Teams Scale Balancer Relationship Specialty Start Date End Date Gisella Woodruff MD PCP - General Internal Medicine 10/31/16 documented as of this encounter
--- NOTE | 2025-05-14 08:22 | PFT_ITS ---
Flows: FEV1: 111 % of predicted at 5.16 L FVC: 130 % of predicted at 7.40 L FEV1/FVC: 70 % Bronchodilator response: Present Volumes: Total lung capacity: 118 % of predicted at 8.87 L Residual volume: 124 % of predicted at 2.00 L Slow vital capacity: 117 % of predicted at 6.87 L Expiratory reserve volume: 133 % of predicted at 2.44 L Diffusion capacity: Normal Impression: Mild obstructive ventilatory defect with positive bronchodilator response. Increased residual volume suggests air trapping. MTDD
[2025-05-14 08:57] VITALS: PULSE 66; O2SAT 98
== END 2025-05-14 08:04 | disposition home or self-care (01) ==
LOC: HO.RESP 08:03
PROVIDERS: PCP Family Medicine; Visit Provider Family Medicine
DX: R06.02 Shortness of breath (principal)
CPT/HCPCS: 94010; 94640; 94727; 94729

== ENCOUNTER → 2025-05-14 08:22 | Outpatient (BNV) | payer MEDICAID, SELFPAY | PROVIDERS: PCP Family Medicine; Visit Provider Internal Medicine Pulmonary Disease | DX: R06.00 Dyspnea, unspecified (principal) | CPT/HCPCS: 94060 ==